=== PATIENT | male | born 1990 | race Caucasian/White ===

== ENCOUNTER 2018-07-07 12:56 | Emergency (ER) | payer SELFPAY ==
[~2018-07-07] VITALS: Ht 185.4 cm; Wt 87.0 kg
[2018-07-07] MEDS ORDERED: methylPREDNISolone SOD SUCC 125 MG/2 ML IVPush ONE (13:30)
[2018-07-07] MEDS ORDERED: FAMOTIDINE 20 MG/2 ML IVPush ONE (13:30)
[2018-07-07] MEDS ORDERED: DIPHENHYDRAMINE 50 MG/ML, 1ML IVPush ONE (13:30)
[2018-07-07] MEDS ORDERED: methylPREDNISolone SOD SUCC 125 MG/2 ML ONE (13:34)
[2018-07-07] MEDS ORDERED: DIPHENHYDRAMINE 50 MG/ML, 1ML ONE (13:34)
[2018-07-07] MEDS ORDERED: FAMOTIDINE 20 MG/2 ML ONE (13:35)
--- NOTE | 2018-07-07 13:50 | NUR ---
PT. IS A & O X 4 WITH RESP EUPNEIC. SATS ARE 97% ON ROOM AIR. PT. HAS FACIAL REDNESS PRESENT. PT. STATES HE AWOKE AND FEELS IF HE IS HAVING AN ALLERGIC REACTION TO AN UNKNOWN SUBSTANCE. PT. HAS NO TONGUE OR LIP SWELLING PRESENT AT THIS TIME. IV ACCESS WAS ESTABLISHED. MEDICATIONS WERE GIVEN ORDERED. PT.'S HOB IS ELEVATED GREATER THAN 30 DEGREES. PT. HAS THE PULSE OX IN PLACE. PT. IS TALKING ON THE PHONE WITHOUT DISTRESS, SPEAKING FULL SENTENCES. PT. WAS GIVEN A BLANKET FOR WARMTH. SIDERAILS REMAIN UP WITH THE CALL LIGHT IN PLACE AT THIS TIME.
--- NOTE | 2018-07-07 15:39 | NUR ---
PT. WAS GIVEN DISCHARGE INSTRUCTIONS AND A SCRIPT WITH UNDERSTANDING VERBALIZED ALONG WITH WILLINGNESS TO COMPLY. PT.'S IV WAS DCD', CATH TIP INTACT. PRESSURE HELD WITH HEMOSTASIS ACHIEVED. PT. WAS AMBULATORY TO THE DISCHARGE DESK. VSS.
[2018-07-07 15:40] VITALS: BP 115/65
== END 2018-07-07 15:43 | disposition home or self-care (01) ==
LOC: ED 13:55
DX: T78.40XA Allergy, unspecified, initial encounter (principal); X58.XXXA Exposure to other specified factors, initial encounter
CPT/HCPCS: 96374; 96375; 99283; J1200; J2930; J3490